=== PATIENT | male | born 1980 ===

== ENCOUNTER 2018-05-31 01:31 | Emergency (ER) | payer SELFPAY ==
[2018-05-31 01:41] VITALS: BP 124/76; PULSE 69; RESP 16; TEMP 98; O2SAT 100
--- NOTE | 2018-05-31 01:50 | C.PDOC ---
History Of Present Illness 38 year old male patient presents to the ER with c/o upper chest pain that has been reproducible for x1 month. Patient reports he also has left trapezius pain. 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 Patient denies rash. Time Seen by Provider: 05/31/18 01:41 Chief Complaint (Nursing): Upper Extremity Problem/Injury History Per: Patient History/Exam Limitations: no limitations Onset/Duration Of Symptoms: Days (x1 month) Current Symptoms Are (Timing): Still Present Past Medical History Reviewed: Historical Data, Nursing Documentation, Vital Signs Vital Signs: Last Vital Signs Temp 98 F 05/31/18 01:38 Pulse 69 05/31/18 01:38 Resp 16 05/31/18 01:38 BP 124/76 05/31/18 01:38 Pulse Ox 100 05/31/18 01:50 Family History: States: No Known Family Hx - Social History Hx Alcohol Use: No Hx Substance Use: No Review Of Systems Except As Marked, All Systems Reviewed And Found Negative. Cardiovascular: Positive for: Chest Pain (upper) Musculoskeletal: Positive for: Other (left trapezius pain ) Skin: Negative for: Rash Physical Exam - Physical Exam Appears: Non-toxic, No Acute Distress Skin: Normal Color, Warm, Dry Head: Atraumatic, Normacephalic Eye(s): bilateral: Normal Inspection, EOMI Chest: Symmetrical, Tenderness (intercostal space; mid clavical T2 tenderness, no rash) Cardiovascular: Rhythm Regular Respiratory: Normal Breath Sounds Back: No CVA Tenderness, No Vertebral Tenderness, No Paraspinal Tenderness, Other (left trapezius spasm and tenderness; no rash ) Extremity: Normal ROM (x4) Neurological/Psych: Oriented x3, Normal Speech ED Course And Treatment O2 Sat by Pulse Oximetry: 100 (RA) Pulse Ox Interpretation: Normal Medical Decision Making Medical Decision Making: plan: motrin intercostal pain L anterior chest T2/3 c/w costochondritis L trapezius tenderness- c/w fixed position @ work (not heavy lifting) muscle spasm/strain NO cardiac s/s. Disposition Doctor Will See Patient In The: Office Counseled Patient/Family Regarding: Studies Performed, Diagnosis - Disposition Referrals: [facility] [Outside] [facility] [Outside] [facility] [Outside] Disposition: HOME/ ROUTINE Disposition Time: 01:50 Condition: GOOD Additional Instructions: bolsa de hielo 1/2 hora por hora, nada caliente Ibuprofeno/advil/motrin 400-600 mg cada 6 horas Massages para dolor del espalda relacion'ado con espacmo/estiramiento muscular. Instructions: Muscle Strain, Costochondritis Forms: [employer] (Azeri) Print Language: JAPANESE - Clinical Impression Clinical Impression: Chest wall discomfort, Trapezius strain - Scribe Statement The provider has reviewed the documentation as recorded by the [place] Kyle Do Provider Attestation: All medical record entries made by the Scribe were at my direction and personally dictated by me. I have reviewed the chart and agree that the record accurately reflects my personal performance of the history, physical exam, medical decision making, and the department course for this patient. I have also personally directed, reviewed, and agree with the discharge instructions and disposition.
== END 2018-05-31 02:01 | disposition home or self-care (01) ==
LOC: C.ER 01:31
DX: R07.89 Other chest pain (principal); S29.012A Strain of muscle and tendon of back wall of thorax, initial encounter; X58.XXXA Exposure to other specified factors, initial encounter